=== PATIENT | female | born 1975 | race Caucasian/White ===

== ENCOUNTER 2022-10-24 07:24 | Outpatient (CLI) | payer OTHER | END 2022-10-24 07:29 | disposition home or self-care (01) | LOC: LAB 07:24 | DX: E78.5 Hyperlipidemia, unspecified (principal); E08.9 Diabetes mellitus due to underlying condition without complications; E66.9 Obesity, unspecified; R05.9 Cough, unspecified; R00.0 Tachycardia, unspecified; G47.30 Sleep apnea, unspecified; Z13.29 Encounter for screening for other suspected endocrine disorder ==

== ENCOUNTER 2022-10-24 08:48 | Outpatient (CLI) | payer OTHER | END 2022-10-24 09:00 | disposition home or self-care (01) | LOC: SONOGRAMA 08:48 | PROVIDERS: ATTEND Specialist | DX: E78.5 Hyperlipidemia, unspecified (principal); E08.9 Diabetes mellitus due to underlying condition without complications; E66.9 Obesity, unspecified; R05.9 Cough, unspecified ==

== ENCOUNTER 2023-01-31 13:17 | Emergency (ER) | payer OTHER ==
[~2023-01-31] VITALS: Ht 154.9 cm; Wt 115.2 kg
[2023-01-31] MEDS ORDERED: JARDIANCE25 MG PO (14:19)
== END 2023-01-31 15:44 | disposition home or self-care (01) ==
LOC: ER 13:17
DX: R53.81 Other malaise (principal); G44.209 Tension-type headache, unspecified, not intractable; Z91.013 Allergy to seafood

== ENCOUNTER 2023-12-11 14:34 | Outpatient (CLI) | payer OTHER ==
[~2023-12-11 14:34] MED LIST: JARDIANCE25 MG PO
== END 2023-12-11 14:51 | disposition home or self-care (01) ==
LOC: RAD 14:34
PROVIDERS: ATTEND Specialist
DX: M62.838 Other muscle spasm (principal)